=== PATIENT | female | born 1970 | race Caucasian/White ===

== ENCOUNTER 2018-07-29 03:14 | Emergency (ER) | payer OTHER ==
[~2018-07-29] VITALS: Ht 165.1 cm; Wt 73.5 kg
[2018-07-29 03:24] VITALS: Ht 165.1 cm; Wt 73.5 kg
[2018-07-29] MEDS ORDERED: ALBUTEROL 0.083% (NEB) 2.5 MG/3 ML AMP HHN STA ×2 (03:37→04:52)
[2018-07-29] MEDS ORDERED: IPRATROPIUM (NEB) 0.5 MG/2.5 ML AMP HHN ONE ×2 (04:00→05:00)
[2018-07-29] MEDS ORDERED: METHYLPREDNISOLONE 125 MG INJ IM ONE (04:00)
[2018-07-29] MEDS ORDERED: ALBU18HF INHALATION (05:07)
[2018-07-29] MEDS ORDERED: D-ME473S2 PO (05:07)
[2018-07-29] MEDS ORDERED: PRED20TA PO (05:07)
--- NOTE | 2018-07-29 05:10 | ERD ---
ER Documentation Chief Complaint Chief Complaint pt reports SOB started 30 minutes ago, cough x 5 days HPI This 47-year-old female presents with cough and wheezing started today. She has had a mild cough for last 5 days. She denies fevers, chest pain, vomiting, abdominal pain. She denies previous history of asthma. ROS All systems reviewed and are negative except as per history of present illness. Medications Home Meds Active Scripts Dextromethorphan Hb-Promethazine Hcl* (Promethazine DM* Syrup) 473 Ml Syrup, 5 ML PO Q6 PRN for COUGH for 5 Days, ML Prov:GINA FARIA MD 07/29/18 Albuterol Sulfate* (Ventolin HFA*) 18 Gm Hfa.aer.ad, 2 PUFF INHALATION Q4H, #1 INHALER Prov:GINA FARIA MD 07/29/18 Prednisone* (Prednisone*) 20 Mg Tab, 60 MG PO DAILY for 4 Days, TAB Prov:GINA FARIA MD 07/29/18 Allergies Allergies: Coded Allergies: No Known Allergy (Unverified , 07/29/18) PMhx/Soc History of Surgery: Yes () Anesthesia Reaction: No Hx Neurological Disorder: No Hx Respiratory Disorders: No Hx Cardiac Disorders: No Hx Psychiatric Problems: No Hx Miscellaneous Medical Probl: No Hx Alcohol Use: No Hx Substance Use: No Hx Tobacco Use: No Smoking Status: Never smoker FmHx Family History: No diabetes, No coronary disease, No other Physical Exam Vitals Vital Signs Date Temp Pulse Resp B/P (MAP) Pulse Ox O2 O2 Flow FiO2 Time Delivery Rate 07/29/18 107 22 97 Room Air 04:52 07/29/18 87 28 04:02 07/29/18 99.0 88 28 188/84 100 03:24 (118) Physical Exam Const: No acute distress Head: Atraumatic Eyes: Normal Conjunctiva ENT: Normal External Ears, Nose and Mouth. Gums and oropharynx normal. Neck: Full range of motion. No meningismus. Resp: Clear to auscultation bilaterally. Coarse breath sounds with inspiratory rhonchi and wheezing. No rales or retractions appreciated. Cardio: Regular rate and rhythm, no murmurs Abd: Soft, non tender, non distended. Normal bowel sounds Skin: No petechiae or rashes Back: No midline or flank tenderness Ext: No cyanosis, or edema Neur: Awake and alert Psych: Normal Mood and Affect Results 24 hrs Current Medications Medications Dose Sig/Gianni Start Time Status Last (Trade) Ordered Route PRN Stop Time Admin Dose Reason Admin 125 mg ONCE ONCE 07/29/18 DC 07/29/18 Methylprednis IM 04:00 07/29/18 03:43 olone Sodium 04:01 Succinate (Solu-Medrol) Albuterol 5 mg ONCE STAT 07/29/18 DC 07/29/18 (Proventil HHN 03:37 07/29/18 04:01 0.083% (Neb)) 03:39 Ipratropium 0.5 mg ONCE ONCE 07/29/18 DC 07/29/18 [place] [facility] 04:00 07/29/18 04:01 (Atrovent 04:01 0.02% (Neb)) Albuterol 5 mg ONCE STAT 07/29/18 DC 07/29/18 (Proventil HHN 04:52 07/29/18 05:08 0.083% (Neb)) 04:53 Ipratropium 0.5 mg ONCE ONCE 07/29/18 DC 07/29/18 [place] [facility] 05:00 07/29/18 05:08 (Atrovent 05:01 0.02% (Neb)) Procedures/MDM Patient given Solu-Medrol 125 IM. Patient given albuterol treatment and Atrovent. Patient had improved breath sounds and felt much better after observation treatment. Chest X-ray 1V Interpreted by me: Soft Tissue: No acute abnormalities Bones: No acute abnormalities Mediastinum/Cardiac Silhouette/Lungs: No acute abnormalities present-normal 1 view chest x-ray Patient presents with coughing with wheezing and rhonchi, likely viral URI. She has no evidence of hypoxemia, respiratory distress. She will be treated with continuation of prednisone, Ventolin, promethazine DM, primary care follow-up and return precautions. The patient was stable with no new complaints during the ER course. Clinically, there is no current evidence to suggest meningitis, sepsis, acute abdomen, pneumonia, stroke, acute coronary syndrome, pulmonary embolism, aortic dissection or any other emergent condition appearing to require further evaluation or hospitalization. Patient counseled regarding my diagnostic impression and care plan. Prior to discharge all questions answered. Pt agrees with treatment plan and understands strict return precautions. Pt is instructed to follow up with primary care provider within 24-48 hours. Precautionary instructions provided including instructions to return to the ER if not improving or for any worsening or changing symptoms or concerns. Departure Diagnosis: Primary Impression: Shortness of breath Condition: Stable Patient Instructions: Uri, Viral W/ Wheezing (Adult) Referrals: NO PRIMARY,CARE PHYSICIAN (PCP) Additional Instructions: Probablamente un virus que dura 2-4 raines. cheque otro vez en el proximo gilda para mas simptomas- vomito, dolor, jamshid, problemas con respirando, o con landa doctor primario. GINA FARIA MD Jul 29, 2018 05:10
[2018-07-29 05:39] VITALS: BP 127/85; PULSE 103; RESP 20
== END 2018-07-29 05:39 | disposition home or self-care (01) ==
LOC: FTE 03:14
DX: R06.02 Shortness of breath (principal)
CPT/HCPCS: 71045; 94640; 94664; 96372; J2930; Z7502; Z7610

== ENCOUNTER 2018-10-23 14:45 | Emergency (ER) | payer SELFPAY ==
[~2018-10-23] VITALS: Wt 75.5 kg
[~2018-10-23 14:45] MED LIST: ALBU18HF INHALATION; D-ME473S2 PO; PRED20TA PO
[2018-10-23 14:51] VITALS: BP 141/90; PULSE 85; RESP 18
== END 2018-10-23 17:20 | disposition left against medical advice (07) ==
LOC: E/R 14:45
DX: Z53.21 Procedure and treatment not carried out due to patient leaving prior to being seen by health care provider (principal)